=== PATIENT | male | born 1975 | race Two or more races ===

== ENCOUNTER 2021-02-16 20:00 | Emergency (ER) | payer OTHER ==
[~2021-02-16] VITALS: Ht 172.7 cm; Wt 75.0 kg
[2021-02-16 20:02] VITALS: BP 118/76
--- NOTE | 2021-02-16 20:08 | NUR ---
BIB EMS FROM [facility] AFTER PT HAD C/O ABD PAIN AND HEMATURIA IN ANDERSON CATHETER. PT HAS ANDERSON SECONDARY TO MS. PT ALSO HAS C/O DISTENDED ABDOMEN AND FEELING BLOATED. VS BP 124/87, HR 87, 96% RA. UPON PALPATION TO LOWER ABDOMEN PT IN INCREASED AMOUNT OF PAIN AND ANDERSON CATHETER NOTED TO HAVE INCREASED REDNESS TO URINE. PT RESTING ON GURNEY. OFFICER X 1 AT BEDSIDE. MONITORS APPLIED.
[2021-02-16] MEDS ORDERED: LIDOCAINE 2%,20 ML JEL.PF.APP MM ONE ×2 (20:30→20:33)
[2021-02-16 20:48] LABS: BASOPHILS % (AUTO) 1 % (0-1); EOSINOPHILS % (AUTO) 1 % (1-7); LYMPHOCYTES % (AUTO) 18 % (22-44); MEAN CORPUSCULAR HEMOGLOBIN 29.7 pg (27.5-34.5); MEAN CORPUSCULAR HGB CONC 33.4 g/dL (33.2-36.2); MEAN PLATELET VOLUME 8.1 fL (7.4-10.4); MONOCYTES % (AUTO) 6 % (2-9); NEUTROPHILS % (AUTO) 74 % (42-75); PLATELET COUNT 232 x10^3/uL (130-400); RED BLOOD COUNT 5.19 x10^6/uL (4.38-5.82); RED CELL DISTRIBUTION WIDTH 13.8 % (9.4-14.8)
[2021-02-16 20:50] LABS: MD NO
[2021-02-16 21:01] LABS: ANION GAP 5 mmol/L (5-15); CALCIUM 8.7 mg/dL (8.5-10.1); CHLORIDE 109 mmol/L (98-107)
--- NOTE | 2021-02-16 21:01 | NUR ---
Report from [facility]. Urine sent off.
--- NOTE | 2021-02-16 21:01 | NUR ---
BLADDER SCAN AT 51 ML. CATHETER CHANGED ACCORDING TO HOSPITAL POLICY. PT TOLERATED WELL. PT STATES HE FEELS MUCH IMPROVED. ERP DR. EUBANKS AWARE.
[2021-02-16 21:02] LABS: ALBUMIN 3.4 g/dL (3.4-5.0)
--- NOTE | 2021-02-16 21:02 | NUR ---
REPORT GIVEN TO KHADIJAH CASON.
[2021-02-16 21:19] LABS: MICROSCOPIC INDICATED
--- NOTE | 2021-02-16 21:43 | NUR ---
Pt with pink urine draining from cath. c/o abdominal pain, cramping in nature. ERP informed. Plan to discharge back to residential.
[2021-02-16] MEDS ORDERED: CEFTRIAXONE 1,000 MG IM ONE (23:00)
[2021-02-16] MEDS ORDERED: CEFTRIAXONE 1,000 MG ONE (23:09)
[2021-02-16] MEDS ORDERED: LIDOCAINE-MPF 1%, 5ML ONE (23:10)
--- NOTE | 2021-02-16 23:15 | NUR ---
No rxn to abx, dc to [facility] with . Rx and instruct.
== END 2021-02-16 23:39 | disposition home or self-care (01) ==
LOC: ED 20:42
DX: N30.01 Acute cystitis with hematuria (principal); R10.2 Pelvic and perineal pain; Z79.899 Other long term (current) drug therapy
CPT/HCPCS: 36415; 51702; 80048; 81001; 82040; 85025; 87077; 87086; 87186; 96372; 99284; J0696